=== PATIENT | female | born 1985 | race Caucasian/White ===

== ENCOUNTER → 2017-01-11 | Outpatient (CLI) | payer BC | LOC: LAB 10:26 | PROVIDERS: ATTEND Nurse Practitioner Family | DX: Z02.6 Encounter for examination for insurance purposes (principal); Z13.1 Encounter for screening for diabetes mellitus; Z13.220 Encounter for screening for lipoid disorders ==

== ENCOUNTER → 2018-06-13 | Outpatient (CLI) | payer BC | LOC: LAB.NP 08:28 | PROVIDERS: ATTEND Nurse Practitioner Family | DX: Z02.6 Encounter for examination for insurance purposes (principal) ==

== ENCOUNTER → 2020-08-25 | Outpatient (CLI) | payer BC ==
--- NOTE | 2020-08-26 16:51 | MRI ---
EXAM DESCRIPTION: Shoulder,Left CLINICAL HISTORY: 35 years, Female, PAIN IN LEFT SHOULDER COMPARISON: Shoulder radiographs 08/13/2020. TECHNIQUE: MRI of the left shoulder was performed with multiplanar multi sequence imaging without intravenous contrast. FINDINGS: Rotator tendons: Supraspinatus tendon focal low-grade partial-thickness bursal surface tear at the anterior myotendinous junction measures 4 mm in AP dimension (series 701 image [id number]), involving approximately 30% tendon thickness. No full-thickness rotator cuff tear or tendon retraction. The infraspinatus, subscapularis and teres minor tendons are intact. Rotator muscles: No rotator cuff muscle atrophy. Glenoid labrum: Limited evaluation of the labrum demonstrates no displaced labral tear or para labral cyst. Anterior sublabral foramen is present. Acromion: The acromion morphology is type two. Mild acromioclavicular joint osteoarthrosis with capsular hypertrophy. Mild lateral downsloping of the acromion. Bone and joints: No full-thickness cartilage defect. No focal bone marrow contusion or fracture. Biceps tendon: Normal course and morphology of the biceps tendon long head within the bicipital groove. The biceps labral anchor appears intact. Soft tissues: No solid or cystic mass is seen. No focal muscle strain or edema. Trace subacromial/subdeltoid fluid. IMPRESSION: 1. Supraspinatus tendon focal low-grade partial-thickness tear at the myotendinous junction. No full-thickness rotator cuff tear or tendon retraction. 2. Type II acromion with mild lateral acromial downsloping can be a cause for external impingement on the rotator cuff. Electronically signed by: Albert Leon DO 08/26/2020 4:50 PM [facility]
== END ==
LOC: MRI 13:01
PROVIDERS: ATTEND Family Medicine
DX: M75.102 Unspecified rotator cuff tear or rupture of left shoulder, not specified as traumatic (principal); M89.8X1 Other specified disorders of bone, shoulder